=== PATIENT | female | born 2000 | race Caucasian/White ===

== ENCOUNTER 2019-09-25 05:23 | Emergency (ER) | payer SELFPAY ==
[2019-09-25 05:32] VITALS: BP 129/96; PULSE 101; RESP 18; TEMP 36.5; O2SAT 100; BMI 20.9
--- NOTE | 2019-09-25 05:34 | ED_ITS ---
Entered by Shari Ferguson, acting as scribe for Zaheer Mccarthy DO Sep 25, 2019 05:23 HPI - Allergic Reaction General: Chief complaint: Allergic Reaction Stated complaint: possible allergic reaction Time Seen by Provider: 09/25/19 05:35 Source: patient Mode of arrival: ambulatory Limitations: no limitations History of Present Illness: MD complaint: allergic reaction Review of Systems General: Reports: 10 or more systems reviewed and unremarkable except in HPI and below Skin/Breast: Reports: rash and itching Physical Exam Narrative: EXAM NARRATIVE: pt states that she is severely allergic to strawberries and that she accidentally took a drink of a smoothie that contained strawberries. pt c/o itching and a rash to the face. HENMT: COMMON NORMALS: normocephalic, head/scalp atraumatic and external nose normal HEAD & SCALP: normocephalic and atraumatic FACE & SINUS: normal facial exam NOSE: external nose normal MOUTH: oral and palatal mucosa normal and tongue normal Neck/C-Spine: COMMON NORMALS: no JVD Resp: COMMON NORMALS: normal respiratory effort, no retractions, no use of accessory muscles and clear to auscultation bilaterally AUSCULTATION: clear to auscultation bilaterally Cardio: COMMON NORMALS: no JVD and regular rhythm RATE: tachycardic RHYTHM: regular rhythm Skin: RASHES: rashes noted (minimal to face) Course Vital Signs: Vital signs: Vital Signs Temperature 97.7 F 09/25/19 05:32 Pulse Rate 101 H 09/25/19 05:32 Respiratory Rate 18 09/25/19 05:32 Blood Pressure 129/96 09/25/19 05:32 Pulse Oximetry 100 09/25/19 05:32 Discharge Plan Discharge Patient Disposition: Home, Self-Care Clinical Impression: Urticaria Allergic reaction Qualifiers: Encounter type: initial encounter Qualified Code(s): T78.40XA - Allergy, unspecified, initial encounter Condition: Stable Prescriptions: New Pepcid 40 mg tablet 40 mg PO BID Qty: 14 RF: 0 prednisone 10 mg tablets,dose pack See Rx Instructions .ROUTE .COMPLEX Qty: 21 RF: 0 Discharge Orders: Discharge Order (Routine); Ordered 09/25/19 Ordered By: Zaheer Mccarthy Referrals: Radha Anglin MD [Primary Care Provider] - Coding Level of Care Code ED Electronic Design Engineer for Chg Fwd Exam Detailed The documentation recorded by the Marty blackman Stephanie Lyn, accurately reflects the service I personally performed and the decisions made by me, Zaheer Mccarthy, Sep 25, 2019 05:23
[2019-09-25] MEDS: famotidine 20 mg/2 mL INJ 40 MG IVP (06:07)
[2019-09-25] MEDS: sodium chloride 0.9% 1,000 ML 999 ML IV (06:07)
[2019-09-25] MEDS: LORazepam 2 mg/mL INJ 1 mL IVP (06:28)
== END 2019-09-25 07:17 | disposition home or self-care (01) ==
PROVIDERS: Emergency Provider Family Medicine; Family Provider Family Medicine; PCP Family Medicine
DX: T78.1XXA Other adverse food reactions, not elsewhere classified, initial encounter (principal); L50.0 Allergic urticaria
CPT/HCPCS: 12345; 96361; 96374; 96375; 99283; J2060; J2930; J3490; J7030

== ENCOUNTER 2020-11-01 22:53 | Emergency (ER) | payer SELFPAY ==
[2020-11-01 23:06] VITALS: BP 114/80; PULSE 92; RESP 18; TEMP 36.4; O2SAT 98; BMI 25.8
[2020-11-01 23:13] VITALS: BP 114/80; PULSE 94; RESP 15; O2SAT 98
[2020-11-01] MEDS: sodium chloride 0.9% 1,000 ML 999 ML IV (23:59)
[2020-11-02] MEDS: LORazepam 2 mg/mL INJ 1 mL 1 MG IV
--- NOTE | 2020-11-02 01:16 | ED_ITS ---
HPI - Alcohol General: Chief Complaint: Alcohol Stated Complaint: SEIZURE LIKE ACTIVITY/ ETOH ON BOARD Time Seen by Provider: 11/01/20 22:57 History of Present Illness: HPI narrative: 20-year-old female with a history of seizures in the distant past. Her last seizure was in 2019 she tells me. Seizures were mostly related to alcohol. She had had some drinks tonight. Evidently she passed out on the way home in the car. She then collapsed at home, and then began to shake in front of her friends. She had several short episodes of tonic-clonic movements with eyes rolled back in her head. She did not lose control of her about her or bite her tongue. She has recovered and is back at baseline now, save some mild intoxication from alcohol. MD complaint: alcohol intoxication Chronic alcohol use: No Previous visits for alcohol intoxication: No Recent trauma: No Associated symptoms: Reports nausea, seizure-like activity and syncope; Deny abdominal pain or vomiting Treatments prior to arrival: none Review of Systems Const: Denies: fever(s) Card: Reports: syncope; Denies: chest pain Resp: Denies: dyspnea GI: Reports: nausea; Denies: abdominal pain or vomiting Neuro: Reports: seizure-like activity [facility] ED Female Reproductive History: Date of last menstrual period: 10/31/20 Physical Exam Const: COMMON NORMALS: alert GENERAL APPEARANCE: odor of alcohol detected ORIENTATION/CONSCIOUSNESS: Yes awake, Yes oriented to person and Yes oriented to place Chest: COMMONS NORMALS: normal inspection of the chest Resp: COMMON NORMALS: normal respiratory effort, No use of accessory muscles and clear to auscultation bilaterally AUSCULTATION: clear to auscultation bilaterally Cardio: COMMON NORMALS: regular rate and regular rhythm RATE: regular rate RHYTHM: regular rhythm GI: COMMON NORMALS: Normal to inspection, nondistended, normoactive bowel nelson nds present, Soft to palpation and non-tender PALPATION: Yes Soft to palpation Neuro: SENSORIUM/ORIENTATION: Yes alert, Yes oriented to person and Yes oriented to place CRANIAL NERVES: Yes CN normal except as noted SPEECH: speech normal GAIT: Yes Normal gait present MOTOR EXAM: Pronator motor function not present Course Vital Signs: Vital signs: Vital Signs Temperature 97.5 F L 11/01/20 23:06 Pulse Rate 94 11/01/20 23:13 Respiratory Rate 15 11/01/20 23:13 Blood Pressure 114/80 11/01/20 23:13 Pulse Oximetry 98 11/01/20 23:13 MDM - Alcohol MDM Narrative: Medical decision making narrative: She has recovered and is back at baseline. She is asking to leave prior to work-up being completed. Discharge Plan Discharge Patient Disposition: Home Clinical Impression: Alcohol related seizure Alcohol intoxication Qualifiers: Complication of substance-induced condition: with unspecified complication Qualified Code(s): F10.929 - Alcohol use, unspecified with intoxication, unspecified Condition: Stable Prescriptions: No Action Pepcid 40 mg tablet 40 mg PO BID Qty: 14 RF: 0 prednisone 10 mg tablets,dose pack See Rx Instructions .ROUTE .COMPLEX Qty: 21 RF: 0 Discharge Orders: Discharge ED (Routine); Ordered 11/02/20 Ordered By: Franklin Mayes Referrals: Radha Anglin MD [Primary Care Provider] - Patient Instructions: Alcohol Intoxication (ED), Recurrent Seizures Adult (ED) Activity Restrictions/Additional Instructions: Abstain from alcohol. Return for repeated episodes of seizure or passing out, mental status changes, vomiting liquids or medications, any other concerning symptoms. Coding Level of Care Code ED 1 Year Olds Preschool Teacher for Chg Fwd Exam Detailed
== END 2020-11-02 01:16 | disposition home or self-care (01) ==
LOC: ER 23:18
PROVIDERS: Emergency Provider Emergency Medicine; PCP Family Medicine
DX: F10.988 Alcohol use, unspecified with other alcohol-induced disorder (principal)
CPT/HCPCS: 96361; 96374; 99283; J2060; J7030

== ENCOUNTER → 2023-05-26 08:00 | Outpatient (BNVA) | payer SELFPAY | PROVIDERS: PCP Family Medicine; Visit Provider Nurse Practitioner Family | DX: J02.9 Acute pharyngitis, unspecified (principal) | CPT/HCPCS: 87880 ==

== ENCOUNTER 2023-06-22 23:03 | Emergency (ER) | payer SELFPAY ==
[2023-06-22 23:11] VITALS: BP 143/86; PULSE 95; RESP 20; TEMP 36.6; O2SAT 100; BMI 26.6
--- NOTE | 2023-06-22 23:19 | XRR_ITS ---
PROCEDURE INFORMATION: Exam: XR Left Foot Exam date and time: 06/23/2023 12:45 AM Age: 23 years old Clinical indication: Pain and injury or trauma; Fall; Other: See notes; Left; Patient HX: Stepped in a hole 6 weeks ago, pain medial aspect of foot(base oftarsal area) TECHNIQUE: Imaging protocol: Radiologic exam of the left foot. Views: 3 or more views. AP Oblique Lateral COMPARISON: No relevant prior studies available. FINDINGS: Bones/joints: There is normal alignment without fractures or dislocations. The toe interphalangeal joints, tarsometatarsal joints, metatarsophalangeal joints and subtalar joint are unremarkable. Os naviculare is incidentally noted. Soft tissues: There is no radiographic soft tissue swelling. There are no radiopaque foreign bodies. Notes: If there is further concern, recommend follow-up radiographs or MRI for complete assessment. XR/XR foot LT min 3V* [id number] IMPRESSION: No fractures or dislocation of the left foot.
--- NOTE | 2023-06-22 23:31 | W.ED.EXTPRO ---
HPI - Extremity Problem General: Chief complaint: Extremity Injury, Lower Stated complaint: Left Foot Swollen Time Seen by Provider: 06/22/23 23:12 History of Present Illness: 23-year-old female comes in today with injury to the left medial foot. Patient states that approximately 2 weeks ago she had injured her foot when she stepped in a hole. Since then patient has had improvement in symptoms until tonight when she turned her ankle again and noticed pain in the same spot with some mild swelling. No significant bruising is noted. Patient appears nontoxic. Patient appears in mild pain. Review of Systems General: Reports: 10 or more systems reviewed and unremarkable except in HPI and below Musc: Reports: extremity pain and joint pain (Left ankle/foot) Physical Exam Const: COMMON NORMALS: alert HENMT: COMMON NORMALS: normocephalic HEAD & SCALP: normocephalic Neck/C-Spine: COMMON NORMALS: full ROM Resp: COMMON NORMALS: normal respiratory effort Cardio: COMMON NORMALS: regular rate RATE: regular rate Back/Pelvis: COMMON NORMALS: thoracic and lumbar spine normal to inspection Extremity: LEFT LOWER EXTREMITY: Yes ankle joint (Medial joint line tenderness to the foot and ankle.) Neuro: SENSORIUM/ORIENTATION: Yes alert Skin: COMMON NORMALS: turgor normal GENERAL SKIN EXAM: turgor normal Course Vital Signs: Vital signs: Vital Signs Temperature 98 F 06/22/23 23:11 Pulse Rate 95 06/22/23 23:11 Respiratory Rate 20 H 06/22/23 23:11 Blood Pressure 143/86 06/22/23 23:11 Pulse Oximetry 100 06/22/23 23:11 MDM - Extremity (Nontraumatic) Medical Decision Making Patient comes in today with complaints of medial tenderness to the foot and ankle with some mild swelling. No bruising or ecchymosis noted. Pulses are intact. Range of motion is intact. Differential diagnosis includes but not limited to fracture, sprain, dislocation. X-ray was noted no fractures or dislocation. Believe patient probably has a sprain. Recommended elastic bandage and increase activity as tolerated with need for follow-up. Patient reported understanding and agreed to plan. XR interpretation done by ED provider, pending radiology final review Discharge Plan Discharge Patient Disposition: Home Clinical Impression: Ankle sprain and strain Condition: Stable Prescriptions: No Action azithromycin 250 mg tablet See Rx Instructions PO .COMPLEX Qty: 6 0RF Rx Instructions: For 250 mg dose pack: take 500 mg today (day 1), then 250 mg for 4 days (days 2-5) PO Discharge Orders: Discharge ED (Routine); Ordered 06/23/23 Ordered By: Torrey Lozano Discharge Diet: Usual diet Discharge Activity: Increase activity as tolerated Patient Instructions: Ankle Sprain (ED) Activity Restrictions/Additional Instructions: Wear elastic bandage to help with pain, swelling, and support. Light activity. Increase activity as tolerated. Follow-up with primary care for further evaluation and treatment. Return to ER for new concerns. Coding Level of Care Code ED Government Service Executive for Frakni Correia
[2023-06-23 01:24] VITALS: RESP 16
== END 2023-06-23 01:35 | disposition home or self-care (01) ==
PROVIDERS: Emergency Provider Nurse Practitioner Family
DX: S93.402A Sprain of unspecified ligament of left ankle, initial encounter (principal); S96.912A Strain of unspecified muscle and tendon at ankle and foot level, left foot, initial encounter; W18.42XA Slipping, tripping and stumbling without falling due to stepping into hole or opening, initial encounter
CPT/HCPCS: 73630; 99283